=== PATIENT | female | born 1980 | race Asian ===

== ENCOUNTER 2018-11-26 01:10 | Inpatient (IN) | payer OTHER ==
[~2018-11-26] VITALS: Ht 152.4 cm; Wt 56.0 kg
[~2018-11-26 01:10] MED LIST: DOCU-131 PO; IBUP-1223 PO; OXYC-302 PO
[2018-11-26] MEDS ORDERED: FENTANYL PF 100 MCG/2ML ONE ×2 (01:22→02:11)
[2018-11-26 01:25] VITALS: BP 93/44
[2018-11-26] MEDS ORDERED: SODIUM CITRATE/CITRIC ACID 15 ML UDC ONE (01:25)
[2018-11-26] MEDS ORDERED: METOCLOPRAMIDE 5 MG/ML, 2ML ONE (01:26)
[2018-11-26] MEDS ORDERED: METOCLOPRAMIDE 5 MG/ML, 2ML IV ONE (01:30)
[2018-11-26] MEDS ORDERED: LACTATED RINGERS 1,000 ML IVBOLUS ONE (01:30)
[2018-11-26] MEDS ORDERED: SODIUM CITRATE/CITRIC ACID 15 ML UDC PO ONE (01:30)
[2018-11-26] MEDS ORDERED: OXYTOCIN 30U/ 0.9% NaCL 500ML 500 ML ONE ×2 (01:36→02:52)
[2018-11-26] MEDS ORDERED: NEWBORN KIT ONE (01:36)
[2018-11-26] MEDS ORDERED: D5%-LACTATED RINGERS 1,000 ML IV SCH (01:38)
[2018-11-26] MEDS ORDERED: LACTATED RINGERS 1,000 ML IV SCH (01:38)
[2018-11-26] MEDS ORDERED: OXYTOCIN 30U/ 0.9% NaCL 500ML 500 ML IV ONE (01:38)
[2018-11-26] MEDS ORDERED: MISOPROSTOL 200 MCG TABLET ONE (01:40)
[2018-11-26] MEDS ORDERED: LIDOCAINE 1%, 20ML ONE (01:40)
[2018-11-26] MEDS ORDERED: FENTANYL PF 100 MCG/2ML IVPush PRN (02:00)
[2018-11-26] MEDS ORDERED: FENTANYL PF 100 MCG/2ML IV PRN (02:00)
[2018-11-26] MEDS ORDERED: ONDANSETRON 2MG/ML, 2ML IVPush PRN (02:00)
[2018-11-26 02:09] LABS: BASOPHILS # (AUTO) 0.07 x10^3/uL (0-0.1); BASOPHILS % (AUTO) 1 % (0-1); EOSINOPHILS % (AUTO) 2 % (1-7); LYMPHOCYTES # (AUTO) 2.41 x10^3/uL (1-3.4); LYMPHOCYTES % (AUTO) 23 % (22-44); MD NO; MEAN CORPUSCULAR HEMOGLOBIN 32.4 pg (27.0-34.8); MEAN CORPUSCULAR HGB CONC 32.6 g/dL (32.4-35.8); MEAN CORPUSCULAR VOLUME 99.4 fL (80-100); MEAN PLATELET VOLUME 8.2 fL (7.4-10.4); MONOCYTES # (AUTO) 0.95 x10^3/uL (0.2-0.8); MONOCYTES % (AUTO) 9 % (2-9); NEUTROPHILS % (AUTO) 65 % (42-75); PLATELET COUNT 266 x10^3/uL (130-400); RED CELL DISTRIBUTION WIDTH 12.9 % (9.6-15.2)
[2018-11-26] MEDS ORDERED: IBUPROFEN 600 MG TABLET ONE (02:29)
[2018-11-26] MEDS: IBUPROFEN 600 MG TABLET PO PRN ×4 (02:40→21:35)
[2018-11-26] MEDS: OXYTOCIN 30U/ 0.9% NaCL 500ML 500 ML IV SCH ×3 (02:55→22:31)
[2018-11-26] MEDS: LACTATED RINGERS 1,000 ML IV SCH ×3 (02:55→17:22)
[2018-11-26] MEDS ORDERED: OXYcodone/APAP 5/325MG TABLET PO PRN (03:00)
[2018-11-26] MEDS ORDERED: MISOPROSTOL 200 MCG TABLET PR PRN (03:00)
[2018-11-26] MEDS ORDERED: ONDANSETRON 2MG/ML, 2ML IV PRN (03:00)
[2018-11-26] MEDS ORDERED: ACETAMINOPHEN 325 MG TABLET PO PRN (03:00)
[2018-11-26] MEDS: OXYcodone/APAP 5/325MG TABLET PO PRN ×4 (04:22→23:55)
[2018-11-26 04:32] VITALS: BP 106/65
[2018-11-26 07:22] VITALS: BP 103/65
[2018-11-26] MEDS: DOCUSATE 100 MG CAPSULE PO PRN ×2 (08:25→19:13)
[2018-11-26] MEDS: PRENATAL VIT/IRON/FA 1 EACH TABLET PO SCH (08:25)
[2018-11-26 09:32] LABS: BASOPHILS # (AUTO) 0.05 x10^3/uL (0-0.1); BASOPHILS % (AUTO) 0 % (0-1); EOSINOPHILS # (AUTO) 0.04 x10^3/uL (0-0.4); EOSINOPHILS % (AUTO) 0 % (1-7); LYMPHOCYTES # (AUTO) 1.19 x10^3/uL (1-3.4); LYMPHOCYTES % (AUTO) 10 % (22-44); MD NO; MEAN CORPUSCULAR HEMOGLOBIN 32.7 pg (27.0-34.8); MEAN CORPUSCULAR HGB CONC 33.1 g/dL (32.4-35.8); MEAN CORPUSCULAR VOLUME 98.9 fL (80-100); MEAN PLATELET VOLUME 7.9 fL (7.4-10.4); MONOCYTES # (AUTO) 0.89 x10^3/uL (0.2-0.8); MONOCYTES % (AUTO) 7 % (2-9); NEUTROPHILS # (AUTO) 10.04 x10^3/uL (1.8-6.8); NEUTROPHILS % (AUTO) 82 % (42-75); PLATELET COUNT 248 x10^3/uL (130-400); RED BLOOD COUNT 3.58 x10^6/uL (3.82-5.3); RED CELL DISTRIBUTION WIDTH 13.2 % (9.6-15.2)
[2018-11-26 11:58] VITALS: BP 111/72
[2018-11-26 20:00] VITALS: BP 101/64
[2018-11-27] MEDS: LACTATED RINGERS 1,000 ML IV SCH ×3 (01:22→17:22)
[2018-11-27] MEDS: OXYcodone/APAP 5/325MG TABLET PO PRN ×4 (04:54→20:24)
[2018-11-27] MEDS: IBUPROFEN 600 MG TABLET PO PRN ×3 (04:54→20:25)
[2018-11-27 08:07] VITALS: BP 112/69
[2018-11-27] MEDS: OXYTOCIN 30U/ 0.9% NaCL 500ML 500 ML IV SCH ×2 (08:31→18:31)
[2018-11-27] MEDS ORDERED: OXYC-302 PO (09:49)
[2018-11-27] MEDS ORDERED: IBUP-1222 PO (09:49)
[2018-11-27] MEDS ORDERED: DOCU-131 PO (09:50)
[2018-11-27] MEDS: DOCUSATE 100 MG CAPSULE PO PRN ×2 (09:59→20:25)
[2018-11-27] MEDS: PRENATAL VIT/IRON/FA 1 EACH TABLET PO SCH (09:59)
[2018-11-27 20:15] VITALS: BP 98/68
[2018-11-28] MEDS: LACTATED RINGERS 1,000 ML IV SCH (01:22)
[2018-11-28] MEDS: IBUPROFEN 600 MG TABLET PO PRN ×2 (02:46→09:04)
[2018-11-28] MEDS: OXYcodone/APAP 5/325MG TABLET PO PRN ×2 (02:46→09:04)
[2018-11-28] MEDS: OXYTOCIN 30U/ 0.9% NaCL 500ML 500 ML IV SCH (04:31)
[2018-11-28] MEDS: PRENATAL VIT/IRON/FA 1 EACH TABLET PO SCH (09:03)
[2018-11-28] MEDS: DOCUSATE 100 MG CAPSULE PO PRN (09:04)
== END 2018-11-28 11:00 | disposition home or self-care (01) | DRG 807 ==
LOC: LDOP 01:10 → LDIP 01:25 → 2NW 04:05
PROVIDERS: ADMIT Obstetrics & Gynecology; ATTEND Obstetrics & Gynecology
PROC: 10E0XZZ Delivery of Products of Conception, External Approach (ICD-10-PCS; principal; 2018-11-26)
PROC: 0KQM0ZZ Repair Perineum Muscle, Open Approach (ICD-10-PCS; 2018-11-26)
DX: O77.0 Labor and delivery complicated by meconium in amniotic fluid (principal); Z37.0 Single live birth; Z3A.38 38 weeks gestation of pregnancy; O70.1 Second degree perineal laceration during delivery
CPT/HCPCS: 36415; 85025; 86850; 86900; G0378; J3010; J2590; J7120